=== PATIENT | female | born 1975 | race Caucasian/White ===

== ENCOUNTER → 2021-03-28 | Outpatient (CLI) | payer BC | LOC: MRI 03-21 13:00 | DX: R41.3 Other amnesia (principal) | CPT/HCPCS: 70553; A9577 ==

== ENCOUNTER → 2022-02-01 | Outpatient (CLI) | payer BC | LOC: US 10:03 | DX: R10.13 Epigastric pain (principal); K76.0 Fatty (change of) liver, not elsewhere classified | CPT/HCPCS: 76700 ==

== ENCOUNTER → 2022-04-23 | Outpatient (CLI) | payer BC | LOC: RAD 11:15 | DX: M25.511 Pain in right shoulder (principal) | CPT/HCPCS: 73030 ==